=== PATIENT | female | born 1955 ===

== ENCOUNTER 2024-10-13 09:00 | Inpatient (IN) | payer OTHER ==
[~2024-10-13] VITALS: Ht 160 cm; Wt 116.6 kg
[2024-10-13 11:12] LABS: HEMATOCRIT 38.9 % (36.0-45.00); HEMOGLOBIN 12.7 g/dL (12.0-15.00); MEAN CELL VOLUME 86.6 fL (80.00-100.00); MEAN CORPUSCULAR HEMOGLOBIN 28.3 pg (27.00-32.0); MEAN CORPUSCULAR HGB CONC 32.7 g/dl (32.0-36.0); PLATELET COUNT 278 K/uL (150-450); RED BLOOD COUNT 4.49 M/uL (4.00-6.00); RED CELL DISTRIBUTION WIDTH 15.4 % (11.5-14.5)
[2024-10-13 11:15] LABS: URINE APPEARANCE Clear; URINE BILIRRUBIN Negative (NEGATIVE); URINE BLOOD Negative; URINE COLOR Yellow; URINE GLUCOSE Negative (NEGATIVE); URINE KETONE Negative (NEGATIVE); URINE LEUKOCYTE Negative; URINE NITRATE Negative; URINE PROTEIN Negative (NEGATIVE); URINE UROBILINOGEN 0.2 E.U./dl
[2024-10-13 11:17] LABS: URINE BACTERIA 105.1 uL (0.0-1933); URINE EPITHELIAL CELLS 16.3 uL (0.0-38.8)
[2024-10-13 11:29] LABS: URINE CAST 0.44 uL (0.0-1.40); URINE RBC 1.7 uL (0.0-20.8)
[2024-10-13 11:39] VITALS: BP 119/77
[2024-10-13 11:41] LABS: INR 0.98; PARTIAL THROMBOPLASTIN TIME 26.5 SECONDS (22.0-34.0); PROTHROMBIN TIME 10.7 SECONDS (9.0-11.5)
[2024-10-13 11:42] VITALS: BP 117/87
[2024-10-13] MEDS ORDERED: COZAAR100 MG PO (11:43)
[2024-10-13] MEDS ORDERED: ASA81 MG PO (11:44)
[2024-10-13] MEDS ORDERED: VERELAN PM200 MG (11:44)
[2024-10-13 11:49] LABS: ALBUMIN 3.8 gm/dL (3.4-5.0); BILIRUBIN TOTAL 0.52 mg/dL (0.3-1.2); CALCIUM 9.3 mg/dL (8.5-10.1); CHOL HDL RATIO 2.2 (0-5.0); CREATININE SERUM 0.87 mg/dL (0.55-1.02); GFR 64.94; GLOBULINA 3.6 G/DL (2.4-3.5); POTASSIUM 4.1 mEq/L (3.5-5.1); TOTAL PROTEIN 7.4 gm/dL (6.4-8.2)
[2024-10-13 12:19] LABS: RH POSITIVE
[2024-10-18] MEDS ORDERED: CEFAZOLIN SODIUM 1,000 MG VIAL ONE ×2 (08:20→17:51)
[2024-10-18] MEDS ORDERED: TRANEXAMIC ACID 100MG/1ML (1000MG) AMPUL IV ONE (08:58)
[2024-10-18] MEDS ORDERED: POVIDONE-IODINE 118 ML BOTT TOP ONE ×2 (09:22→09:29)
[2024-10-18] MEDS ORDERED: KETOROLAC TROMETHAMINE 30 MG VIAL ONE (10:26)
[2024-10-18] MEDS ORDERED: MORPHINE SULFATE 4 MG/ML CARTRIDGE IV ONE (11:00)
[2024-10-18] MEDS ORDERED: LIDOCAINE HCL 1%/EPINEPHRINE 20ML VIAL IJ ONE (11:00)
[2024-10-18] MEDS ORDERED: BUPIVACAINE HCL 30 ML VIAL IJ ONE (11:00)
[2024-10-18] MEDS ORDERED: MORPHINE SULFATE 4 MG/ML CARTRIDGE IV PRN (12:00)
[2024-10-18] MEDS ORDERED: SODIUM CHLORIDE 0.45 % 1,000 ML IV SCH (12:00)
[2024-10-18] MEDS ORDERED: ACETAMINOPHEN 500 MG GEL..CAP PO SCH (12:00)
[2024-10-18] MEDS ORDERED: ONDANSETRON HCL 2 MG/ML VIAL IV PRN (12:00)
[2024-10-18] MEDS ORDERED: OxyCODONE HCL 5 MG TABLET (ROXICODONE) PO PRN (12:00)
[2024-10-18] MEDS ORDERED: hydrALAZINE HCL 20 MG VIAL IV PRN (13:45)
[2024-10-18] MEDS ORDERED: CEFAZOLIN SODIUM 1,000 MG VIAL IV SCH (17:00)
[2024-10-18] MEDS ORDERED: GABAPENTIN 300 MG CAPSULE PO SCH (17:00)
[2024-10-18] MEDS ORDERED: GABAPENTIN 300 MG CAPSULE PO ONE (17:51)
[2024-10-18] MEDS ORDERED: ACETAMINOPHEN 500 MG GEL..CAP PO ONE (17:51)
[2024-10-18] MEDS ORDERED: FAMOTIDINE/PF 20 MG/2 ML VIAL ONE (20:44)
[2024-10-18] MEDS ORDERED: FAMOTIDINE/PF 20 MG in 0.9 % SODIUM CHLORIDE 8 ML IV PUSH SCH (21:00)
[2024-10-18 21:26] VITALS: BP 119/77
[2024-10-19 00:35] VITALS: BP 97/73
[2024-10-19 04:15] LABS: HEMATOCRIT 34.3 % (36.0-45.00); MEAN CELL VOLUME 87.2 fL (80.00-100.00); MEAN CORPUSCULAR HEMOGLOBIN 28.4 pg (27.00-32.0); MEAN CORPUSCULAR HGB CONC 32.5 g/dl (32.0-36.0); PLATELET COUNT 241 K/uL (150-450); RED BLOOD COUNT 3.94 M/uL (4.00-6.00); RED CELL DISTRIBUTION WIDTH 15.4 % (11.5-14.5)
[2024-10-19 04:46] LABS: HEMOGLOBIN 11.2 g/dL (12.0-15.00)
[2024-10-19 08:00] VITALS: BP 102/83
[2024-10-19] MEDS ORDERED: PERCOCET 5-3251 EACH PO (08:25)
[2024-10-19] MEDS ORDERED: ELIQUIS2.5 MG PO (08:25)
[2024-10-19] MEDS ORDERED: DUI500 PO (08:25)
[2024-10-19] MEDS ORDERED: APIXABAN 2.5 MG TABLET PO SCH (09:00)
[2024-10-19] MEDS ORDERED: SENNOSIDES 1 TAB TABLET PO SCH (09:00)
[2024-10-19] MEDS ORDERED: LOSARTAN POTASSIUM 100 MG TABLET PO SCH (09:00)
[2024-10-19] MEDS ORDERED: VERAPAMIL HCL 240 MG TABLET.SA PO SCH (09:00)
[2024-10-19] MEDS ORDERED: Cyanocobalamin/Mecobalamin 1 TAB.SL SL NR (14:00)
[2024-10-19] MEDS ORDERED: SOD FERRIC GLUC COMPLX/SUCROSE 62.5 MG/5 ML AMPUL IV NR (14:00)
[2024-10-19 16:02] VITALS: BP 120/79
[2024-10-19] MEDS ORDERED: VITAMIN B COMPLEX 1 EACH PO SCH (17:00)
[2024-10-20 00:03] VITALS: BP 93/70
[2024-10-20 07:32] LABS: HEMATOCRIT 33.9 % (36.0-45.00); HEMOGLOBIN 10.7 g/dL (12.0-15.00); MEAN CELL VOLUME 88.6 fL (80.00-100.00); MEAN CORPUSCULAR HEMOGLOBIN 27.9 pg (27.00-32.0); MEAN CORPUSCULAR HGB CONC 31.6 g/dl (32.0-36.0); PLATELET COUNT 267 K/uL (150-450); RED BLOOD COUNT 3.83 M/uL (4.00-6.00); RED CELL DISTRIBUTION WIDTH 15.3 % (11.5-14.5)
[2024-10-20 08:00] VITALS: BP 126/76
[2024-10-20] MEDS ORDERED: Cyanocobalamin/Mecobalamin 1 TAB.SL SL SCH (09:00)
[2024-10-20] MEDS ORDERED: IRON FUM,PS/FOLIC ACID/VITC/B3 1 CAP CAPSULE PO SCH (09:00)
[2024-10-20] MEDS ORDERED: SOD FERRIC GLUC COMPLX/SUCROSE 62.5 MG/5 ML AMPUL IV SCH (09:00)
[2024-10-20 15:00] VITALS: BP 134/75
[2024-10-20] MEDS ORDERED: FAMOtidine 20 MG TABLET PO SCH (21:00)
[2024-10-20 22:08] VITALS: BP 134/75
== END 2024-10-20 19:13 | DRG 470 ==
LOC: OB/GYN 10-18 05:32 → O/R 10-18 05:32 → SURH 10-18 07:00 → OB/GYN 10-18 20:37
PROVIDERS: ADMIT Orthopaedic Surgery; ATTEND Orthopaedic Surgery
PROC: 0MNN0ZZ Release Right Knee Bursa and Ligament, Open Approach (ICD-10-PCS; 2024-10-18)
PROC: 0QUD0JZ Supplement Right Patella with Synthetic Substitute, Open Approach (ICD-10-PCS; 2024-10-18)
PROC: 0SRC0JZ Replacement of Right Knee Joint with Synthetic Substitute, Open Approach (ICD-10-PCS; principal; 2024-10-18 07:00)
DX: M17.11 Unilateral primary osteoarthritis, right knee (principal); D62 Acute posthemorrhagic anemia; M22.11 Recurrent subluxation of patella, right knee; I10 Essential (primary) hypertension; E66.9 Obesity, unspecified; G47.33 Obstructive sleep apnea (adult) (pediatric); Z96.651 Presence of right artificial knee joint